=== PATIENT | male | born 1980 | race Caucasian/White ===

== ENCOUNTER 2018-06-13 13:56 | Outpatient (REF) | payer SELFPAY | END 2018-06-13 13:57 | LOC: OM 13:56 | PROVIDERS: Visit Provider Nurse Practitioner Family | DX: Z02.79 Encounter for issue of other medical certificate (principal) ==

== ENCOUNTER 2021-02-11 18:11 | Outpatient (REF) | payer BC, SELFPAY ==
[2021-02-11 21:47] LABS: ALT 38 U/L (16-63); AST 24 U/L (15-37); Alkaline Phosphatase 102 U/L (46-116); Anion Gap 6.8 mmol/L (3-11); BUN 9 mg/dL (7-18); Bilirubin, Total 0.4 mg/dL (0.2-1.0); CO2 29.2 mmol/L (21.0-32.0); Calcium 8.3 mg/dL (8.5-10.1); Calculated LDL 120 mg/dL (<100); Chloride 102 mmol/L (98-107); Cholesterol 177 mg/dL (<200); Glucose 89 mg/dL (74-106); HDL Cholesterol 41 mg/dL (40-60); Potassium 4.1 mmol/L (3.5-5.1); Sodium 138 mmol/L (136-145); Total Protein 7.2 g/dL (6.4-8.2); Triglyceride 82 mg/dL (<150)
== END 2021-02-11 18:12 | disposition home or self-care (01) ==
LOC: NCHCN 18:11
PROVIDERS: Visit Provider Nurse Practitioner Family
DX: Z13.220 Encounter for screening for lipoid disorders (principal); Z13.228 Encounter for screening for other metabolic disorders; Z68.41 Body mass index [BMI] 40.0-44.9, adult
CPT/HCPCS: 80053; 80061

== ENCOUNTER 2021-03-25 16:37 | Outpatient (REF) | payer BC, SELFPAY ==
[2021-03-25 20:44] LABS: Calcium 8.8 mg/dL (8.5-10.1)
== END 2021-03-25 16:38 | disposition home or self-care (01) ==
LOC: NCHCN 16:37
PROVIDERS: Visit Provider Nurse Practitioner Family
DX: E83.51 Hypocalcemia (principal)
CPT/HCPCS: 82040; 82310

== ENCOUNTER 2021-08-04 14:53 | Outpatient (REF) | payer BC, SELFPAY ==
[2021-08-06 13:01] LABS: COVID-19 RT-PCR UVMMC Result Negative (Negative)
== END 2021-08-04 14:54 | disposition home or self-care (01) ==
LOC: NCHCN 14:53
PROVIDERS: Visit Provider Nurse Practitioner Community Health
DX: Z20.822 Contact with and (suspected) exposure to COVID-19 (principal)
CPT/HCPCS: U0003

== ENCOUNTER 2022-02-12 23:17 | Outpatient (REF) | payer BC, SELFPAY ==
[2022-02-12 22:27] LABS: BUN 8 mg/dL (7-18); Calcium 8.9 mg/dL (8.5-10.1); Chloride 104 mmol/L (98-107); Glucose 119 mg/dL (74-106); Potassium 4.3 mmol/L (3.5-5.1); Sodium 138 mmol/L (136-145)
[2022-02-14 10:41] LABS: COVID-19 RT-PCR UVMMC Result Negative (Negative)
== END 2022-02-12 23:18 | disposition home or self-care (01) ==
LOC: NCHCN 23:17
PROVIDERS: Visit Provider Registered Nurse
DX: R09.89 Other specified symptoms and signs involving the circulatory and respiratory systems (principal); Z51.81 Encounter for therapeutic drug level monitoring; Z20.822 Contact with and (suspected) exposure to COVID-19
CPT/HCPCS: 80048; U0003